=== PATIENT | female | born 1960 ===

== ENCOUNTER 2020-11-03 07:31 | Day surgery (SDC) | payer OTHER ==
[~2020-11-03] VITALS: Ht 162.6 cm; Wt 81.2 kg
[~2020-11-03 07:31] MED LIST: DEXILAN PO; LUNESTA2 MG PO; PRISTIQ ER50 MG PO; SYNTHROID112 MCG PO; VALSARTAN160 MG PO
== END 2020-11-03 21:20 | disposition home or self-care (01) ==
LOC: CIR.AMB 07:31
PROVIDERS: ATTEND Student in an Organized Health Care Education/Training Program
DX: M51.16 Intervertebral disc disorders with radiculopathy, lumbar region (principal); Z20.822 Contact with and (suspected) exposure to COVID-19

== ENCOUNTER 2021-07-03 15:57 | Emergency (ER) | payer OTHER ==
[~2021-07-03] VITALS: Ht 162.6 cm; Wt 78.0 kg
[2021-07-03] MEDS ORDERED: IRBESARTAN150 MG PO (16:11)
[2021-07-03] MEDS ORDERED: SYNTHROID112 MCG PO (16:12)
[2021-07-03] MEDS ORDERED: TYLENOL ARTHRI650 MG PO (18:13)
== END 2021-07-03 18:34 | disposition home or self-care (01) ==
LOC: ER 15:57
DX: M54.9 Dorsalgia, unspecified (principal); Z98.890 Other specified postprocedural states; M51.16 Intervertebral disc disorders with radiculopathy, lumbar region; Z88.6 Allergy status to analgesic agent; Z88.0 Allergy status to penicillin; Z88.8 Allergy status to other drugs, medicaments and biological substances